=== PATIENT | male | born 1945 | race Caucasian/White ===

== ENCOUNTER → 2016-11-21 | Outpatient (REF) | payer MEDICARE, OTHER ==
[2016-11-21 19:13] LABS: CALCIUM LEVEL 10.2 MG/DL (8.8-10.2); CREATININE FOR GFR 1.42 MG/DL (0.70-1.30); GLOMERULAR FILTRATION RATE 52.6 (>49); POTASSIUM SERUM 4.6 MEQ/L (3.5-5.1)
== END ==
LOC: M LAB REF 16:34
PROVIDERS: ATTEND Physician Assistant Medical
DX: E11.22 Type 2 diabetes mellitus with diabetic chronic kidney disease (principal); E78.2 Mixed hyperlipidemia

== ENCOUNTER → 2016-12-22 | Outpatient (REF) | payer MEDICARE, OTHER ==
[2016-12-27 10:37] LABS: ALBUMIN 4.45 GM/DL (3.29-5.55); ALBUMIN % 63.6 % (55.8-66.1); GAMMA GLOBULIN % 12.1 % (11.1-18.8)
== END ==
LOC: M LAB REF 13:00
PROVIDERS: ATTEND Internal Medicine Nephrology
DX: E83.52 Hypercalcemia (principal)

== ENCOUNTER → 2016-12-28 | Outpatient (CLI) | payer MEDICARE, OTHER ==
--- NOTE | 2016-12-28 14:25 | REP ---
PARATHYROID NUCLEAR SCINTIGRAPHY WITH SPECT IMAGING: HISTORY: Hypercalcemia. Comparison parathyroid scintigraphy is from July 28, 2011. TECHNIQUE: 26.3 millicuries technetium 99m sestamibi is injected and 15-minute delay and 3- hour delayed head and neck imaging is acquired with planar technique. A SPECT imaging acquisition is also acquired. SCINTIGRAPHIC FINDINGS: Initial imaging shows normal thyroid and salivary uptake in the head and neck region. Delayed scan images demonstrate expected washout from the thyroid with no persistent neck uptake to suggest a parathyroid adenoma. No upper mediastinal focus is seen. The SPECT images show no additional abnormality. IMPRESSION: Negative parathyroid nuclear scintigraphy with planar and SPECT imaging. No scintigraphic evidence to suggest parathyroid adenoma. Signed by Curt Shah MD 12/28/2016 02:48 P
== END ==
LOC: M RAD 09:45
PROVIDERS: ATTEND Internal Medicine Nephrology
DX: E83.52 Hypercalcemia (principal); N20.0 Calculus of kidney
CPT/HCPCS: 78070; 78803; A9500

== ENCOUNTER → 2017-01-16 | Outpatient (CLI) | payer MEDICARE, OTHER ==
--- NOTE | 2017-01-16 08:21 | REP ---
Clinical: History of bilateral iliac artery stenting. Technique: Real time gutierrez scale and color Doppler evaluation using curved array transducer. Findings: The abdominal aorta demonstrates scattered atherosclerotic changes without aneurysm or periaortic inflammatory changes/fluid. Proximal aorta 2.0 x 2.5 cm. Mid aorta 2.4 x 2.6 cm. Distal aorta 2.2 x 2.8 cm. Right common iliac artery 1.4 x 1.1 cm. Left common iliac artery 1.0 x 0.8 cm. Doppler interrogation demonstrates normal arterial wave patterns through the abdominal aorta and common iliac arteries. Distal aorta velocity at 99.4 cm/sec. Right iliac artery velocity (within stent) at 227.2 cm/sec. Right iliac artery velocity (post stent) at 254.5 cm/sec. Left iliac artery velocity (within stent) at 246.4 cm/sec. Left iliac artery velocity (post stent) at 276.9 cm/sec. Impression: No evidence for abdominal aortic aneurysm. Patent bilateral iliac artery stents with increased velocities as noted above. Signed by Yordy Gutierrez MD 01/16/2017 08:13 A
== END ==
LOC: M RAD 07:11
PROVIDERS: ATTEND Surgery
DX: Z95.828 Presence of other vascular implants and grafts (principal)

== ENCOUNTER → 2017-03-23 | Outpatient (REF) | payer MEDICARE, OTHER | LOC: M LAB REF 17:15 | PROVIDERS: ATTEND Internal Medicine Nephrology | DX: E83.52 Hypercalcemia (principal) ==

== ENCOUNTER → 2017-07-06 | Outpatient (REF) | payer MEDICARE, OTHER | LOC: M LAB REF 07:57 | PROVIDERS: ATTEND Internal Medicine Nephrology | DX: E83.52 Hypercalcemia (principal) ==

== ENCOUNTER → 2017-08-03 | Outpatient (REF) | payer MEDICARE, OTHER ==
[2017-08-03 19:38] LABS: PERCENT SATURATION 25.3 % (19.7-50.0)
[2017-08-04 12:04] LABS: FOLATE 14.6 NG/ML
== END ==
LOC: M LAB REF 17:40
PROVIDERS: ATTEND Internal Medicine Nephrology
DX: E83.52 Hypercalcemia (principal); D64.9 Anemia, unspecified

== ENCOUNTER → 2018-01-11 | Outpatient (CLI) | payer MEDICARE, OTHER | LOC: M RAD 08:55 | DX: Z95.828 Presence of other vascular implants and grafts (principal) | CPT/HCPCS: 76775 ==

== ENCOUNTER 2018-12-26 08:10 | Day surgery (SDC) | payer MEDICARE, OTHER ==
[~2018-12-26] VITALS: Ht 170.2 cm; Wt 90.7 kg
[~2018-12-26 08:10] MED LIST: AMLO10TA5 PO; CARV6.25 PO; CINA30TA PO; FENO160T10 PO; INSUHUMDS SC; KPHOS50TA PO; LANTINJ4 SC; LOSA100T50 PO; METO1TAB32 PO; NS 1,000 ML IV ONE; PARO20TA3 PO; POTA4.25 PO; ROSU40TA3 PO
[2018-12-26] MEDS ORDERED: LIDOCAINE 2% INJ 100 MG/5 ML SDV (FOR ANES.) As Ordered ONE (10:52)
[2018-12-26] MEDS ORDERED: PROPOFOL 200 MG/20 ML VIAL As Ordered ONE (10:52)
--- NOTE | 2018-12-26 11:05 | ROOR ---
Patient Name: Ramiro Richter Procedure Date: 12/26/2018 10:36 AM Date of : 1945 Age: 73 Room: [facility] Gender: Male Note Status: Finalized Procedure: Total Colonoscopy to Cecum + Biopsy Polypectomy Indications: Screening for colorectal malignant neoplasm Providers: Jalen Varela MD Referring MD: RAMONA COWART Requesting Provider: Medicines: Monitored Anesthesia Care Complications: No immediate complications. Procedure: Pre-Anesthesia Assessment: - The heart rate, respiratory rate, oxygen saturations, blood pressure, adequacy of pulmonary ventilation, and response to care were monitored throughout the procedure. The Colonoscope was introduced through the anus and advanced to the cecum, identified by appendiceal orifice and ileocecal valve. The colonoscopy was performed without difficulty. The patient tolerated the procedure well. The quality of the bowel preparation was good. Findings: The perianal and digital rectal examinations were normal. Non-bleeding internal hemorrhoids were found during retroflexion. The hemorrhoids were small and Grade I (internal hemorrhoids that do not prolapse). Multiple small and large-mouthed diverticula were found in the recto-sigmoid colon, sigmoid colon and descending colon. A small polyp was found in the hepatic flexure. The polyp was sessile. The polyp was removed with a jumbo cold forceps. Resection and retrieval were complete. A small polyp was found at 50 cm proximal to the anus. The polyp was sessile. The polyp was removed with a jumbo cold forceps. Resection and retrieval were complete. The exam was otherwise without abnormality on direct and retroflexion views. Impression: - Non-bleeding internal hemorrhoids. - Diverticulosis in the recto-sigmoid colon, in the sigmoid colon and in the descending colon. - One small polyp at the hepatic flexure, removed with a jumbo cold forceps. Resected and retrieved. - One small polyp at 50 cm proximal to the anus, removed with a jumbo cold forceps. Resected and retrieved. - The examination was otherwise normal on direct and retroflexion views. - The exam was otherwise normal to the cecum. Recommendation: - Patient has a contact number available for emergencies. The signs and symptoms of potential delayed complications were discussed with the patient. Return to normal activities tomorrow. Written discharge instructions were provided to the patient. - High fiber diet. - Discharge patient to home. - Continue present medications. - Await pathology results. - Telephone GI clinic for pathology results in 1 week. - Repeat colonoscopy for surveillance based on pathology results. - Return to referring physician. - The findings and recommendations were discussed with the patient's family. Jalen Varela MD Jalen Varela MD 12/26/2018 11:05:17 AM This report has been signed electronically. Number of Addenda: 0 Note Initiated On: 12/26/2018 10:36 AM Estimated Blood Loss: Estimated blood loss: none.
[2018-12-26 11:30] VITALS: BP 176/94
== END 2018-12-26 11:48 | disposition home or self-care (01) ==
LOC: M OPP 08:10
PROVIDERS: ATTEND Internal Medicine Gastroenterology
DX: Z12.11 Encounter for screening for malignant neoplasm of colon (principal); K64.0 First degree hemorrhoids; D12.3 Benign neoplasm of transverse colon; K57.30 Diverticulosis of large intestine without perforation or abscess without bleeding; N18.3 Chronic kidney disease, stage 3 (moderate); Z79.4 Long term (current) use of insulin; Z79.899 Other long term (current) drug therapy; Z87.891 Personal history of nicotine dependence

== ENCOUNTER → 2019-01-01 | Outpatient (CLI) | payer MEDICARE, OTHER ==
[~2019-01-01] MED LIST changes: -NS 1,000 ML IV ONE
--- NOTE | 2019-01-01 10:45 | REP ---
Aortic sonography with an aortoiliofemoral Doppler ultrasound: History: Abdominal aortic aneurysm without rupture. Status post insertion of iliac artery stent. Comparison sonography January 11, 2018. Comparison CT study August 26, 2016. Sonographic findings: The abdominal aorta measures 2.4 x 3.3 cm in AP by transverse dimension proximally at the diaphragmatic hiatus. At the renal artery level these dimensions are 2.0 x 2.9 cm. At mid aorta, its dimensions are 2.2 x 2.6 cm. Distal aorta measures 2.5 x 2.5 cm. Right and left common iliac arteries measure 1.0 and 0.9 cm in greatest diameter. Bilateral iliac artery stents are patent. Distal aortic peak systolic flow velocity is recorded by Doppler at 81.1 cm/sec. The left common iliac artery stent velocity is 230 cm/sec today. Poststent velocity 360 cm/sec. The right common iliac artery stent velocity is 279 cm/sec. We were not able to assess the poststent segment of the left iliac artery due to bowel gas. Impression: Aortic ectasia. Patent common iliac stents bilaterally. Velocities as above. Electronically Signed by Curt Shah MD 01/01/2019 11:21 A
== END ==
LOC: M RAD 09:13
PROVIDERS: ATTEND Surgery
DX: Z95.828 Presence of other vascular implants and grafts (principal); I71.4 Abdominal aortic aneurysm, without rupture

== ENCOUNTER → 2019-01-09 | Outpatient (REF) | payer MEDICARE, OTHER ==
[2019-01-09 18:07] LABS: CHOLESTEROL RISK RATIO 4.794 (<5)
[2019-01-09 18:40] LABS: MAU/CREAT RATIO 52.4 MCG/MG (0.0-30.0)
== END ==
LOC: M LABDRWCV 16:57
PROVIDERS: ATTEND Physician Assistant Medical
DX: E78.2 Mixed hyperlipidemia (principal)

== ENCOUNTER → 2019-12-31 | Outpatient (CLI) | payer MEDICARE, OTHER ==
[~2019-12-31] MED LIST changes: -CINA30TA PO; +CINA30TA4 PO; -ROSU40TA3 PO; +ROSU40TA4 PO
--- NOTE | 2019-12-31 10:59 | REP ---
ULTRASOUND ABDOMINAL AORTA AND ILIAC ARTERIES: Comparison 01/01/2019. Real-time sonographic evaluation of abdominal aorta and iliac arteries performed. There is no abdominal aortic aneurysm. Maximum AP diameter of the proximal abdominal aorta is 2.9 cm, mid aspect 1.4 to 1.5 cm and distally 2.2 cm. Right common iliac artery measures 9 x 7 mm and left 6 x 8 mm. There are bilateral common iliac artery stents again noted which are patent. Peak systolic velocity of the distal abdominal aorta is 131 cm/s. Peak systolic velocity within the right common iliac stent is 182 cm/s and immediately distal to the stent 129 cm/s. Peak systolic velocity in the left common iliac stent is 217 cm/s, immediately distal to the stent 302 cm/s. Findings are similar to the prior study. IMPRESSION: Patent bilateral common iliac artery stents as discussed above with similar velocity measurements compared to the prior study of 01/01/2019. Electronically Signed by Lalo Park MD 12/31/2019 07:53 P
== END ==
LOC: M RAD 09:06
PROVIDERS: ATTEND Surgery
DX: Z95.828 Presence of other vascular implants and grafts (principal); I71.4 Abdominal aortic aneurysm, without rupture

== ENCOUNTER → 2020-05-15 | Outpatient (CLI) | payer MEDICARE, OTHER ==
[~2020-05-15] MED LIST changes: -AMLO10TA5 PO; +AMLO1TAB25 PO
[2020-05-15 16:34] LABS: BILIRUBIN,TOTAL 0.3 MG/DL (0.2-1.0); CALCIUM LEVEL 9.4 MG/DL (8.8-10.2); CHOLESTEROL RISK RATIO 4.307 (<5); CREATININE FOR GFR 1.39 MG/DL (0.70-1.30); GLOMERULAR FILTRATION RATE 53.3 (>42); POTASSIUM SERUM 4.4 MEQ/L (3.5-5.1); TOTAL PROTEIN 7.2 GM/DL (6.4-8.2)
[2020-05-15 17:09] LABS: CREATININE, URINE 89.2 MG/DL; MAU/CREAT RATIO 35.8 MCG/MG (0.0-30.0)
== END ==
LOC: M WUC 13:21
PROVIDERS: ATTEND Physician Assistant
DX: N18.3 Chronic kidney disease, stage 3 (moderate) (principal); E78.2 Mixed hyperlipidemia; E11.9 Type 2 diabetes mellitus without complications

== ENCOUNTER → 2021-03-18 | Outpatient (CLI) | payer MEDICARE, OTHER ==
--- NOTE | 2021-03-18 09:36 | REP ---
INDICATION: AAA WITHOUT RUPTURE. COMPARISON: 12/31/2019 the latest prior TECHNIQUE: Transabdominal scanning.Multiple ultrasonographic images of the abdominal aorta were obtained the same fashion as the prior exam. FINDINGS: The proximal aorta could not be imaged due to the patient's intestinal gas pattern. The maximal AP dimension of the abdominal aorta as measured in the longitudinal scan plane is 2.6 cm. This is the infrarenal aorta and has a peak systolic velocity of 117.7 centimeters/second. Bilateral common iliac arterial stents were again identified to be patent. The technologist performing the examination did not obtained peak systolic velocities in those vessels. There is no evidence of common iliac arterial ectasia. IMPRESSION: Exam findings and limitations as described above. There is no evidence of aneurysmal dilatation. <Electronically signed by Tr Oropeza > 03/18/21 [id number]
== END ==
LOC: M RAD 08:47
PROVIDERS: ATTEND Surgery
DX: I71.4 Abdominal aortic aneurysm, without rupture (principal)

== ENCOUNTER → 2021-06-16 | Outpatient (REF) | payer MEDICARE, OTHER ==
[2021-06-16 16:48] LABS: ALBUMIN 4.1 GM/DL (3.2-5.2); BILIRUBIN,TOTAL 0.5 MG/DL (0.2-1.0); CALCIUM LEVEL 10.3 MG/DL (8.8-10.2); CHOLESTEROL RISK RATIO 4.157 (<5); CREATININE FOR GFR 1.31 MG/DL (0.70-1.30); GLOMERULAR FILTRATION RATE 56.9 (>42); POTASSIUM SERUM 4.2 MEQ/L (3.5-5.1)
[2021-06-16 16:50] LABS: HEMOGLOBIN A1c 6.8 %
[2021-06-16 17:02] LABS: MAU/CREAT RATIO 138.3 MCG/MG (0.0-30.0)
== END ==
LOC: M LABDRWCV 16:00
PROVIDERS: ATTEND Nurse Practitioner Family
DX: E11.69 Type 2 diabetes mellitus with other specified complication (principal); E78.2 Mixed hyperlipidemia

== ENCOUNTER → 2021-11-09 | Outpatient (REF) | payer MEDICARE, OTHER ==
[~2021-11-09] MED LIST changes: +LOSA100T45 PO; -LOSA100T50 PO
== END ==
LOC: M LABDRWCV 15:37
PROVIDERS: ATTEND Nurse Practitioner Family
DX: E78.2 Mixed hyperlipidemia (principal); E11.22 Type 2 diabetes mellitus with diabetic chronic kidney disease

== ENCOUNTER → 2022-05-27 | Outpatient (CLI) | payer MEDICARE, OTHER | LOC: M WUC 15:03 | PROVIDERS: ATTEND Nurse Practitioner Family | DX: M16.0 Bilateral primary osteoarthritis of hip (principal); M51.36 Other intervertebral disc degeneration, lumbar region; Z95.818 Presence of other cardiac implants and grafts; M41.86 Other forms of scoliosis, lumbar region ==

== ENCOUNTER → 2022-07-06 | Outpatient (CLI) | payer MEDICARE, OTHER ==
[~2022-07-06] MED LIST changes: +NAPR-832 PO; +TELM1TAB37 PO
== END ==
LOC: M LABSMTC 11:43
PROVIDERS: ATTEND Anesthesiology
DX: Z01.812 Encounter for preprocedural laboratory examination (principal); Z11.52 Encounter for screening for COVID-19

== ENCOUNTER 2022-07-11 12:04 | Day surgery (SDC) | payer MEDICARE, OTHER ==
[~2022-07-11] VITALS: Ht 170.2 cm; Wt 86.6 kg
[~2022-07-11 12:04] MED LIST changes: +ceFAZolin SOD 2 GM in IV 1 EA IV ONE
[2022-07-11] MEDS ORDERED: LR 1,000 ML IV SCH (12:35)
[2022-07-11 12:38] LABS: HEMATOCRIT 39.1 % (42.0-52.0); HEMOGLOBIN 13.4 g/dl (13.5-17.5); MEAN CORPUSCULAR HEMOGLOBIN 28.4 pg (27.0-33.0); MEAN CORPUSCULAR HGB CONC 34.3 g/dl (32.0-36.5); MEAN CORPUSCULAR VOLUME 82.8 fl (80.0-96.0); PLATELET COUNT, AUTOMATED 399 10^3/uL (150-450); RED BLOOD COUNT 4.72 10^6/uL (4.30-6.10); WHITE BLOOD COUNT 9.1 10^3/uL (4.0-10.0)
[2022-07-11] MEDS ORDERED: ASPI-1 PO (12:48)
[2022-07-11] MEDS ORDERED: propofoL 200 MG/20 ML VIAL As Ordered ONE (13:02)
[2022-07-11] MEDS ORDERED: LIDOCAINE 2% 100MG/5ML SDV (FOR ANES.) As Ordered ONE (13:02)
[2022-07-11] MEDS ORDERED: fentaNYL 100 MCG/2 ML INJECTION As Ordered ONE (13:03)
[2022-07-11] MEDS ORDERED: LIDOCAINE 1% SDV 30ML VIAL As Ordered ONE (13:30)
[2022-07-11] MEDS ORDERED: BACITRACIN OINTMENT 30GM TUBE As Ordered ONE (14:06)
[2022-07-11 14:50] VITALS: BP 134/60
== END 2022-07-11 15:01 | disposition home or self-care (01) ==
LOC: M SDC 12:04
PROVIDERS: ATTEND Internal Medicine Cardiovascular Disease
DX: R55 Syncope and collapse (principal); I10 Essential (primary) hypertension; E11.9 Type 2 diabetes mellitus without complications; Z79.4 Long term (current) use of insulin; K21.9 Gastro-esophageal reflux disease without esophagitis; N18.30 Chronic kidney disease, stage 3 unspecified; Z79.82 Long term (current) use of aspirin; Z79.899 Other long term (current) drug therapy; Z87.891 Personal history of nicotine dependence
CPT/HCPCS: 33285; 36415; 85027; 93005; C1764; J0690; J3010

== ENCOUNTER → 2022-10-27 | Outpatient (REF) | payer MEDICARE, OTHER ==
[~2022-10-27] MED LIST changes: +ASPI-1 PO; +GABA-282 PO; +ONDA-83 PO; -ceFAZolin SOD 2 GM in IV 1 EA IV ONE
[2022-10-27 18:10] LABS: ALBUMIN 3.5 G/DL (3.2-5.2); BILIRUBIN,TOTAL 0.5 MG/DL (0.3-1.2); CALCIUM LEVEL 10.7 MG/DL (8.3-10.6); CREATININE FOR GFR 2.11 MG/DL (0.70-1.30); GLOMERULAR FILTRATION RATE 32.8 (>42); POTASSIUM SERUM 4.5 MMOL/L (3.5-5.1); TOTAL PROTEIN 6.7 G/DL (5.7-8.2)
[2022-10-27 18:25] LABS: BASO % 0.2 % (0.0-1.0); EOS # 0.1 10^3/uL (0.0-0.5); EOS % 1.4 % (0.0-3.0); HEMATOCRIT 37.8 % (42.0-52.0); HEMOGLOBIN 12.5 g/dl (13.5-17.5); LYMPH # 1.4 10^3/uL (1.5-5.0); LYMPH % 31.7 % (24.0-44.0); MEAN CORPUSCULAR HGB CONC 33.1 g/dl (32.0-36.5); MEAN CORPUSCULAR VOLUME 84.8 fl (80.0-96.0); MONO # 0.6 10^3/uL (0.0-0.8); MONO % 13.4 % (2.0-8.0); NEUTROPHILS # 2.3 10^3/uL (1.5-8.5); NEUTROPHILS % 52.6 % (36.0-66.0); PLATELET COUNT, AUTOMATED 294 10^3/uL (150-450); RED BLOOD COUNT 4.46 10^6/uL (4.30-6.10); WHITE BLOOD COUNT 4.4 10^3/uL (4.0-10.0)
== END ==
LOC: M LABDRWCV 17:04
PROVIDERS: ATTEND Nurse Practitioner Family
DX: R19.7 Diarrhea, unspecified (principal)

== ENCOUNTER 2022-10-28 13:45 | Inpatient (IN) | payer MEDICARE, OTHER ==
[~2022-10-28] VITALS: Ht 167.6 cm; Wt 80.2 kg
[~2022-10-28 13:45] MED LIST changes: -GABA-282 PO; -ONDA-83 PO
[2022-10-28] MEDS ORDERED: NS 1,000 ML IV ONE ×2 (17:05→19:00)
[2022-10-28] MEDS ORDERED: LIDOCAINE 2% 5ML JELLY UROJET TOP ONE (17:05)
[2022-10-28] MEDS: ONDANSETRON 4MG 2ML VIAL IV ONE ×2 (17:49→22:42)
[2022-10-28 17:58] LABS: BASO % 0.1 % (0.0-1.0); EOS # 0.1 10^3/uL (0.0-0.5); HEMATOCRIT 35.5 % (42.0-52.0); HEMOGLOBIN 12.1 g/dl (13.5-17.5); LYMPH % 14.7 % (24.0-44.0); MEAN CORPUSCULAR HEMOGLOBIN 28.1 pg (27.0-33.0); MEAN CORPUSCULAR HGB CONC 34.1 g/dl (32.0-36.5); MEAN CORPUSCULAR VOLUME 82.4 fl (80.0-96.0); MONO # 0.6 10^3/uL (0.0-0.8); MONO % 8.8 % (2.0-8.0); NEUTROPHILS # 5.3 10^3/uL (1.5-8.5); PLATELET COUNT, AUTOMATED 317 10^3/uL (150-450); RED BLOOD COUNT 4.31 10^6/uL (4.30-6.10)
[2022-10-28 18:10] LABS: INR 1.03; PROTHROMBIN TIME 13.7 SECONDS (12.5-14.5)
[2022-10-28 18:12] LABS: LIPASE 63 U/L (12-53)
[2022-10-28 18:14] LABS: ALBUMIN 3.5 G/DL (3.2-5.2); ALKALINE PHOSPHATASE 56 U/L (46-116); ALT/SGPT 42 U/L (7.0-40); AST/SGOT 35 U/L (<34); BILIRUBIN,DIRECT 0.2 MG/DL (<0.4); BILIRUBIN,TOTAL 0.5 MG/DL (0.3-1.2); BLOOD UREA NITROGEN 48 MG/DL (9-23); CARBON DIOXIDE LEVEL 20 MMOL/L (20-31); CHLORIDE LEVEL 106 MMOL/L (98-107); CK-MB VALUE MASS < 1.0 NG/ML (<3.6); CPK CREATINE PHOSPHOKINASE 39 U/L (46-171); CREATININE FOR GFR 1.83 MG/DL (0.70-1.30); GLOMERULAR FILTRATION RATE 38.6 (>42); GLUCOSE, FASTING 101 MG/DL (74-106); MB/CK RELATIVE INDEX 2.56 (< OR =4); POTASSIUM SERUM 5.1 MMOL/L (3.5-5.1); SODIUM LEVEL 138 MMOL/L (136-145); TOTAL PROTEIN 6.6 G/DL (5.7-8.2)
[2022-10-28 18:39] LABS: RSV AMPLIFICATION NEGATIVE (NEGATIVE)
[2022-10-28] MEDS ORDERED: LOSA100T45 PO (19:55)
[2022-10-28] MEDS ORDERED: GABA-282 PO (19:55)
[2022-10-28] MEDS ORDERED: ONDA-83 PO (19:56)
[2022-10-28] MEDS ORDERED: POTA4.25 PO (19:56)
[2022-10-28] MEDS ORDERED: HOME MED LIST COMPLETE! XX SCH (20:00)
[2022-10-28] MEDS ORDERED: guaiFENesin SYRUP 200MG 10ML UDC PO PRN (20:50)
[2022-10-28] MEDS ORDERED: DEXTROSE 50% 50ML SYRINGE IV PRN (20:50)
[2022-10-28] MEDS ORDERED: GLUCAGON INJ 1MG VIAL SC PRN (20:50)
[2022-10-28] MEDS ORDERED: GLUCOSE 4GM CHEW TABLET PO PRN (20:50)
[2022-10-28] MEDS ORDERED: IPRATROPIUM 0.5MG/ALBUTEROL 2.5MG INH SOL UD 3ML (DUONEB) NEB PRN (20:50)
[2022-10-28] MEDS ORDERED: INSULIN LISPRO (NovoLOG) PER UNIT SC SCH (21:00)
[2022-10-28 21:34] LABS: FIBRINOGEN 660 MG/DL (268-480)
[2022-10-28 21:37] LABS: D-DIMER QUANT < 270 ng/ml (<500); MAGNESIUM LEVEL 1.8 MG/DL (1.8-2.4)
[2022-10-28 21:38] LABS: LDH LACTATE DEHYDROGENASE 166 U/L (120-246)
[2022-10-28 21:42] LABS: FERRITIN 335.6 NG/ML (10.5-307.3)
[2022-10-28] MEDS ORDERED: DOXYCYCLINE HYCLATE 100 MG in D5W MINI-BAG PLUS 100 ML IV SCH (22:00)
[2022-10-28 22:42] VITALS: BP 131/64
[2022-10-28] MEDS: CARVedilol 6.25 MG TAB PO SCH (23:18)
[2022-10-28] MEDS: NS 1,000 ML IV SCH (23:20)
[2022-10-28] MEDS: cefTRIAXone SOD 1 GM in D5W MINI-BAG PLUS 50 ML IV SCH (23:20)
[2022-10-29 01:09] VITALS: O2SAT 94
[2022-10-29 05:20] VITALS: BP 123/61
[2022-10-29 06:32] LABS: BASO % 0.2 % (0.0-1.0); EOS # 0.1 10^3/uL (0.0-0.5); EOS % 1.6 % (0.0-3.0); HEMATOCRIT 31.1 % (42.0-52.0); HEMOGLOBIN 10.4 g/dl (13.5-17.5); LYMPH # 1.1 10^3/uL (1.5-5.0); LYMPH % 24.8 % (24.0-44.0); MEAN CORPUSCULAR HEMOGLOBIN 28.3 pg (27.0-33.0); MEAN CORPUSCULAR HGB CONC 33.4 g/dl (32.0-36.5); MEAN CORPUSCULAR VOLUME 84.5 fl (80.0-96.0); MONO # 0.5 10^3/uL (0.0-0.8); MONO % 11.9 % (2.0-8.0); NEUTROPHILS # 2.7 10^3/uL (1.5-8.5); PLATELET COUNT, AUTOMATED 289 10^3/uL (150-450); RED BLOOD COUNT 3.68 10^6/uL (4.30-6.10); WHITE BLOOD COUNT 4.4 10^3/uL (4.0-10.0)
[2022-10-29 06:38] LABS: PARTIAL THROMBOPLASTIN TIME 33.3 SECONDS (24.8-34.2)
[2022-10-29 06:39] LABS: BLOOD UREA NITROGEN 42 MG/DL (9-23); CALCIUM LEVEL 10.4 MG/DL (8.3-10.6); CARBON DIOXIDE LEVEL 24 MMOL/L (20-31); CHLORIDE LEVEL 108 MMOL/L (98-107); CREATININE FOR GFR 1.57 MG/DL (0.70-1.30); GLOMERULAR FILTRATION RATE 46.1 (>42); GLUCOSE, FASTING 86 MG/DL (74-106); POTASSIUM SERUM 4.9 MMOL/L (3.5-5.1); SODIUM LEVEL 139 MMOL/L (136-145)
[2022-10-29 06:40] LABS: MAGNESIUM LEVEL 1.7 MG/DL (1.8-2.4)
[2022-10-29 06:41] LABS: CALCIUM LEVEL 10.4 MG/DL (8.3-10.6); CREATININE FOR GFR 1.55 MG/DL (0.70-1.30); GLOMERULAR FILTRATION RATE 46.8 (>42); POTASSIUM SERUM 4.9 MMOL/L (3.5-5.1)
[2022-10-29 06:42] LABS: INR 1.11; PROTHROMBIN TIME 14.5 SECONDS (12.5-14.5)
[2022-10-29] MEDS: INSULIN LISPRO (NovoLOG) PER UNIT SC SCH ×2 (07:30→12:00)
[2022-10-29] MEDS: ASPIRIN 325 MG TAB PO SCH (07:56)
[2022-10-29] MEDS: guaiFENesin ER 600 MG TAB PO SCH ×2 (07:56→20:55)
[2022-10-29] MEDS: FENOFIBRATE 145MG TABLET (TRICOR) PO SCH (07:56)
[2022-10-29] MEDS: CINACALCET 30 MG TAB (SENSIPAR) PO SCH (07:56)
[2022-10-29] MEDS: PARoxetine 20MG TABLET PO SCH (07:56)
[2022-10-29] MEDS: ENOXAPARIN 40MG/0.4ML SYRINGE (J1650 PER 10MG) SC SCH (07:57)
[2022-10-29] MEDS: CARVedilol 6.25 MG TAB PO SCH ×2 (07:59→20:54)
[2022-10-29 08:00] LABS: MAGNESIUM LEVEL 1.7 MG/DL (1.8-2.4)
[2022-10-29 08:02] LABS: BILIRUBIN,DIRECT 0.2 MG/DL (<0.4)
[2022-10-29 08:06] LABS: ALBUMIN 3.1 G/DL (3.2-5.2); ALKALINE PHOSPHATASE 49 U/L (46-116); ALT/SGPT 30 U/L (7.0-40); AST/SGOT 24 U/L (<34); BILIRUBIN,TOTAL 0.4 MG/DL (0.3-1.2)
[2022-10-29 09:57] LABS: FOLATE 13.79 NG/ML (>5.4); THYROID STIMULATING HORMONE 0.855 uIU/ML (0.55-4.78); THYROXINE (T4) 11.2 UG/DL (4.5-10.9)
[2022-10-29 09:58] LABS: VITAMIN B12 LEVEL 524 PG/ML (211-911)
[2022-10-29] MEDS: NS 1,000 ML IV SCH ×2 (11:15→23:36)
[2022-10-29] MEDS: DOXYCYCLINE HYCLATE 100MG TABLET PO SCH ×2 (11:15→20:55)
[2022-10-29 13:34] VITALS: O2SAT 94
[2022-10-29 14:00] VITALS: BP 127/58
[2022-10-29] MEDS: OMEPRAZOLE 20MG CAP PO SCH (16:09)
[2022-10-29 20:45] VITALS: O2SAT 94
[2022-10-29 20:50] VITALS: BP 127/57
[2022-10-29] MEDS: cefTRIAXone SOD 1 GM in D5W MINI-BAG PLUS 50 ML IV SCH (20:55)
[2022-10-30 05:10] VITALS: BP 127/57
[2022-10-30 06:43] LABS: EOS # 0.1 10^3/uL (0.0-0.5); EOS % 1.5 % (0.0-3.0); HEMATOCRIT 31.2 % (42.0-52.0); HEMOGLOBIN 10.7 g/dl (13.5-17.5); LYMPH # 0.8 10^3/uL (1.5-5.0); MEAN CORPUSCULAR HEMOGLOBIN 28.7 pg (27.0-33.0); MEAN CORPUSCULAR HGB CONC 34.3 g/dl (32.0-36.5); MEAN CORPUSCULAR VOLUME 83.6 fl (80.0-96.0); MONO # 0.5 10^3/uL (0.0-0.8); MONO % 9.6 % (2.0-8.0); NEUTROPHILS # 3.4 10^3/uL (1.5-8.5); NEUTROPHILS % 71.3 % (36.0-66.0); PLATELET COUNT, AUTOMATED 295 10^3/uL (150-450); RED BLOOD COUNT 3.73 10^6/uL (4.30-6.10); WHITE BLOOD COUNT 4.8 10^3/uL (4.0-10.0)
[2022-10-30 07:11] LABS: MAGNESIUM LEVEL 1.4 MG/DL (1.8-2.4)
[2022-10-30 07:13] LABS: CALCIUM LEVEL 9.9 MG/DL (8.3-10.6); CREATININE FOR GFR 1.25 MG/DL (0.70-1.30); GLOMERULAR FILTRATION RATE 59.9 (>42); POTASSIUM SERUM 4.6 MMOL/L (3.5-5.1)
[2022-10-30] MEDS: OMEPRAZOLE 20MG CAP PO SCH (08:20)
[2022-10-30] MEDS: FENOFIBRATE 145MG TABLET (TRICOR) PO SCH (08:20)
[2022-10-30] MEDS: DOXYCYCLINE HYCLATE 100MG TABLET PO SCH (08:20)
[2022-10-30] MEDS: ASPIRIN 325 MG TAB PO SCH (08:20)
[2022-10-30] MEDS: guaiFENesin ER 600 MG TAB PO SCH (08:20)
[2022-10-30] MEDS: CINACALCET 30 MG TAB (SENSIPAR) PO SCH (08:20)
[2022-10-30] MEDS: PARoxetine 20MG TABLET PO SCH (08:20)
[2022-10-30 08:21] VITALS: BP 139/61
[2022-10-30] MEDS: NS 1,000 ML IV SCH (08:21)
[2022-10-30] MEDS: CARVedilol 6.25 MG TAB PO SCH (08:21)
[2022-10-30] MEDS: ENOXAPARIN 40MG/0.4ML SYRINGE (J1650 PER 10MG) SC SCH (08:23)
[2022-10-30] MEDS ORDERED: CEFD300C41 PO (09:47)
[2022-10-30] MEDS ORDERED: DOXY100T PO (09:47)
[2022-10-30] MEDS ORDERED: MAGN400T2 PO (09:50)
[2022-10-30] MEDS: MAG SULF 1GM/100ML (MAG RUN) 1 GM in IV 1 EA IV SCH ×3 (10:01→12:25)
[2022-10-30 10:19] VITALS: O2SAT 94
[2022-10-30] MEDS ORDERED: BEBTELOVIMAB 175MG 2ML VIAL (EUA) IV ONE (13:15)
[2022-10-30] MEDS ORDERED: methylPREDNISolone 125MG 2ML VIAL IV PRN (13:15)
[2022-10-30] MEDS ORDERED: ALBUTEROL SULFATE 2.5MG/0.5ML INH NEB SOLN INH PRN (13:15)
[2022-10-30] MEDS ORDERED: NS 1,000 ML IV SCH (13:15)
[2022-10-30] MEDS ORDERED: diphenhydrAMINE 50MG/ML VIAL IV PRN (13:15)
[2022-10-30] MEDS ORDERED: EPINEPHrine INJ 1 MG/ML 1ML AMP IM PRN (13:15)
[2022-10-30] MEDS ORDERED: ALBUTEROL 90 MCG/ACT 8GM HFA INHALER INH PRN (13:15)
== END 2022-10-30 15:21 | disposition home or self-care (01) | DRG 177 ==
LOC: M ED 13:45 → M ED INP 20:47 → ENRESERV 21:43 → M MSPAV 22:36
PROVIDERS: ADMIT Internal Medicine; ATTEND Internal Medicine
PROC: B246ZZZ Ultrasonography of Right and Left Heart (ICD-10-PCS; principal; 2022-10-29)
DX: U07.1 COVID-19 (principal); J12.82 Pneumonia due to coronavirus disease 2019; N17.9 Acute kidney failure, unspecified; I50.30 Unspecified diastolic (congestive) heart failure; I13.0 Hypertensive heart and chronic kidney disease with heart failure and stage 1 through stage 4 chronic kidney disease, or unspecified chronic kidney disease; K21.9 Gastro-esophageal reflux disease without esophagitis; E11.22 Type 2 diabetes mellitus with diabetic chronic kidney disease; E21.3 Hyperparathyroidism, unspecified; E11.51 Type 2 diabetes mellitus with diabetic peripheral angiopathy without gangrene; E86.0 Dehydration; F39 Unspecified mood [affective] disorder; E78.5 Hyperlipidemia, unspecified; I73.9 Peripheral vascular disease, unspecified; N18.30 Chronic kidney disease, stage 3 unspecified; M19.90 Unspecified osteoarthritis, unspecified site; I71.43 Infrarenal abdominal aortic aneurysm, without rupture; R91.1 Solitary pulmonary nodule; R05.3 Chronic cough; Z79.4 Long term (current) use of insulin; Z79.899 Other long term (current) drug therapy; Z90.49 Acquired absence of other specified parts of digestive tract; Z79.82 Long term (current) use of aspirin; Z95.828 Presence of other vascular implants and grafts; Z87.891 Personal history of nicotine dependence

== ENCOUNTER → 2022-11-04 | Outpatient (REF) | payer MEDICARE, OTHER ==
[~2022-11-04] MED LIST changes: +CEFD300C41 PO; +DOXY100T PO; +GABA-282 PO; +MAGN400T2 PO; +ONDA-83 PO
[2022-11-04 18:03] LABS: BASO % 0.1 % (0.0-1.0); EOS # 0.1 10^3/uL (0.0-0.5); EOS % 1.5 % (0.0-3.0); HEMATOCRIT 33.4 % (42.0-52.0); HEMOGLOBIN 11.1 g/dl (13.5-17.5); LYMPH # 1.2 10^3/uL (1.5-5.0); LYMPH % 18.2 % (24.0-44.0); MEAN CORPUSCULAR HEMOGLOBIN 27.6 pg (27.0-33.0); MEAN CORPUSCULAR HGB CONC 33.2 g/dl (32.0-36.5); MEAN CORPUSCULAR VOLUME 83.1 fl (80.0-96.0); MONO # 1.2 10^3/uL (0.0-0.8); MONO % 17.2 % (2.0-8.0); NEUTROPHILS # 4.2 10^3/uL (1.5-8.5); NEUTROPHILS % 62.3 % (36.0-66.0); PLATELET COUNT, AUTOMATED 386 10^3/uL (150-450); RED BLOOD COUNT 4.02 10^6/uL (4.30-6.10); WHITE BLOOD COUNT 6.8 10^3/uL (4.0-10.0)
[2022-11-04 18:20] LABS: ALBUMIN 3.1 G/DL (3.2-5.2); BILIRUBIN,TOTAL 0.4 MG/DL (0.3-1.2); CALCIUM LEVEL 11.5 MG/DL (8.3-10.6); CREATININE FOR GFR 1.37 MG/DL (0.70-1.30); GLOMERULAR FILTRATION RATE 53.9 (>42); POTASSIUM SERUM 4.6 MMOL/L (3.5-5.1); TOTAL PROTEIN 6.2 G/DL (5.7-8.2)
== END ==
LOC: M LABDRAWC 17:02
PROVIDERS: ATTEND Nurse Practitioner Family
DX: J12.82 Pneumonia due to coronavirus disease 2019 (principal); R19.7 Diarrhea, unspecified

== ENCOUNTER → 2022-12-08 | Outpatient (REF) | payer MEDICARE, OTHER ==
[2022-12-08 17:42] LABS: BASO % 0.6 % (0.0-1.0); EOS # 0.7 10^3/uL (0.0-0.5); EOS % 11.2 % (0.0-3.0); HEMATOCRIT 36.5 % (42.0-52.0); HEMOGLOBIN 11.6 g/dl (13.5-17.5); LYMPH # 1.8 10^3/uL (1.5-5.0); LYMPH % 27.8 % (24.0-44.0); MEAN CORPUSCULAR HEMOGLOBIN 27.3 pg (27.0-33.0); MEAN CORPUSCULAR HGB CONC 31.8 g/dl (32.0-36.5); MEAN CORPUSCULAR VOLUME 85.9 fl (80.0-96.0); MONO # 0.5 10^3/uL (0.0-0.8); NEUTROPHILS # 3.3 10^3/uL (1.5-8.5); NEUTROPHILS % 51.9 % (36.0-66.0); PLATELET COUNT, AUTOMATED 397 10^3/uL (150-450); RED BLOOD COUNT 4.25 10^6/uL (4.30-6.10); WHITE BLOOD COUNT 6.3 10^3/uL (4.0-10.0)
[2022-12-08 18:04] LABS: BILIRUBIN,TOTAL 0.4 MG/DL (0.3-1.2); CALCIUM LEVEL 10.1 MG/DL (8.3-10.6); CHOLESTEROL RISK RATIO 4.17 (<5); CREATININE FOR GFR 1.3 MG/DL (0.70-1.30); GLOMERULAR FILTRATION RATE 57.3 (>42); HDL CHOLESTEROL 37.8 MG/DL (>40); LDL CHOLESTEROL 99.4 MG/DL (<100); POTASSIUM SERUM 4.3 MMOL/L (3.5-5.1); TOTAL PROTEIN 6.8 G/DL (5.7-8.2)
[2022-12-08 18:10] LABS: HEMOGLOBIN A1c 5.3 % (4.0-6.0)
[2022-12-08 18:12] LABS: CREATININE, URINE 195.9 MG/DL
[2022-12-08 18:13] LABS: MAU/CREAT RATIO 32.6 MCG/MG (0.0-30.0)
== END ==
LOC: M LABDRWCV 16:55
PROVIDERS: ATTEND Nurse Practitioner Family
DX: I10 Essential (primary) hypertension (principal); E11.69 Type 2 diabetes mellitus with other specified complication; E78.2 Mixed hyperlipidemia; N18.30 Chronic kidney disease, stage 3 unspecified

== ENCOUNTER → 2023-03-28 | Outpatient (CLI) | payer MEDICARE, OTHER ==
[~2023-03-28] MED LIST changes: -LOSA100T45 PO; +LOSA100T46 PO
== END ==
LOC: M RAD 08:33
PROVIDERS: ATTEND Surgery
DX: I73.9 Peripheral vascular disease, unspecified (principal); I71.40 Abdominal aortic aneurysm, without rupture, unspecified

== ENCOUNTER → 2023-05-12 | Outpatient (CLI) | payer MEDICARE, OTHER ==
[~2023-05-12] MED LIST changes: +CARA1TAB6 PO; +CINA30TA5; +HYDR10TAB PO; +ISOS10TA3 PO; +ISOVUE-370 76% 100ML VIAL As Ordered ONE; +PROT1TAB2 PO; +SELF1KIT MC
== END ==
LOC: M RAD 13:50
PROVIDERS: ATTEND Nurse Practitioner Family
DX: R91.1 Solitary pulmonary nodule (principal)
CPT/HCPCS: 71260; Q9967

== ENCOUNTER → 2024-06-06 | Outpatient (REF) | payer MEDICARE, OTHER ==
[~2024-06-06] MED LIST changes: +CEFD1CAP9 PO; -CEFD300C41 PO; +HYDR-161 PO; -HYDR10TAB PO; -ISOVUE-370 76% 100ML VIAL As Ordered ONE; +LOSA50TA28 PO; -ROSU40TA4 PO; +ROSU40TA63 PO
[2024-06-06 18:43] LABS: BASO % 0.5 % (0.0-1.0); EOS # 0.5 10^3/uL (0.0-0.5); HEMATOCRIT 33.5 % (42.0-52.0); HEMOGLOBIN 11.4 g/dl (13.5-17.5); LYMPH # 1.5 10^3/uL (1.5-5.0); LYMPH % 27.1 % (24.0-44.0); MEAN CORPUSCULAR HEMOGLOBIN 28.9 pg (27.0-33.0); MONO # 0.5 10^3/uL (0.0-0.8); MONO % 8.8 % (2.0-8.0); NEUTROPHILS % 53.2 % (36.0-66.0); PLATELET COUNT, AUTOMATED 327 10^3/uL (150-450); RED BLOOD COUNT 3.94 10^6/uL (4.30-6.10); WHITE BLOOD COUNT 5.6 10^3/uL (4.0-10.0)
[2024-06-06 19:10] LABS: BILIRUBIN,TOTAL 0.4 MG/DL (0.3-1.2); CREATININE FOR GFR 1.43 MG/DL (0.70-1.30); POTASSIUM SERUM 4.6 MMOL/L (3.5-5.1); TOTAL PROTEIN 6.7 G/DL (5.7-8.2)
== END ==
LOC: M LABDRWCV 17:42
PROVIDERS: ATTEND Nurse Practitioner Family
DX: I10 Essential (primary) hypertension (principal); E11.69 Type 2 diabetes mellitus with other specified complication

== ENCOUNTER → 2025-02-12 | Day surgery (SDC) | payer MEDICARE, OTHER ==
[~2025-02-12] VITALS: Ht 170.2 cm; Wt 86.8 kg
[~2025-02-12] MED LIST changes: +DEXTROSE 50% 50ML SYRINGE IV PRN; +GABA-1172 PO; -GABA-282 PO; +GLUCAGON INJ 1MG VIAL SC PRN; +GLUCOSE 4 GM CHEW PO PRN; -ROSU40TA63 PO; +ROSU40TA81 PO
[2025-02-12] MEDS: INSULIN LISPRO (NovoLOG) PER UNIT SC PRN (10:41)
[2025-02-12 11:33] VITALS: TEMP 97.9
[2025-02-12 11:56] VITALS: BP 125/58; O2SAT 95
== END | disposition home or self-care (01) ==
LOC: M OPP 09:46
PROVIDERS: ATTEND Internal Medicine Gastroenterology
DX: Z12.11 Encounter for screening for malignant neoplasm of colon (principal); D12.3 Benign neoplasm of transverse colon; K57.30 Diverticulosis of large intestine without perforation or abscess without bleeding; K64.0 First degree hemorrhoids; Z86.0100 Personal history of colon polyps, unspecified; Z79.82 Long term (current) use of aspirin; Z79.4 Long term (current) use of insulin; Z79.899 Other long term (current) drug therapy
CPT/HCPCS: 45380; 88305; J1815

== ENCOUNTER 2025-08-10 10:47 | Emergency (ER) | payer MEDICARE, OTHER ==
[~2025-08-10] VITALS: Ht 170.2 cm; Wt 86.1 kg
[~2025-08-10 10:47] MED LIST changes: -DEXTROSE 50% 50ML SYRINGE IV PRN; -GLUCAGON INJ 1MG VIAL SC PRN; -GLUCOSE 4 GM CHEW PO PRN
[2025-08-10 13:03] LABS: BASO # 0.0 10^3/uL (0.0-0.2); BASO % 0.3 % (0.0-1.0); EOS # 0.4 10^3/uL (0.0-0.5); EOS % 3.0 % (0.0-3.0); LYMPH # 1.8 10^3/uL (1.5-5.0); LYMPH % 15.2 % (24.0-44.0); MONO # 0.7 10^3/uL (0.0-0.8); MONO % 6.3 % (2.0-8.0); NEUTROPHILS # 8.8 10^3/uL (1.5-8.5); NEUTROPHILS % 74.7 % (36.0-66.0); PLATELET COUNT, AUTOMATED 429 10^3/uL (150-450)
[2025-08-10] MEDS: MORPHINE 4 MG/ML 1 ML VIAL IV ONE (13:03)
[2025-08-10] MEDS: ONDANSETRON 4MG 2ML VIAL IV ONE (13:03)
[2025-08-10] MEDS: NS 500 ML IV ONE (13:03)
[2025-08-10] MEDS ORDERED: ISOVUE-370 76% 100 ML VIAL As Ordered ONE (13:22)
[2025-08-10 13:25] LABS: ALT/SGPT 34.0 U/L (7.0-40); AST/SGOT 27.0 U/L (<34)
[2025-08-10] MEDS ORDERED: HYDR-3713 PO (15:08)
[2025-08-10 15:31] VITALS: BP 156/79; TEMP 98.2; O2SAT 97
== END 2025-08-10 15:33 | disposition home or self-care (01) ==
LOC: M ED 10:47
DX: S30.13XA Contusion of flank (latus) region, initial encounter (principal); Y92.9 Unspecified place or not applicable; Y93.9 Activity, unspecified; Y99.9 Unspecified external cause status; W10.8XXA Fall (on) (from) other stairs and steps, initial encounter; N40.0 Benign prostatic hyperplasia without lower urinary tract symptoms; I71.9 Aortic aneurysm of unspecified site, without rupture; M51.360 Other intervertebral disc degeneration, lumbar region with discogenic back pain only; M51.34 Other intervertebral disc degeneration, thoracic region; Z79.1 Long term (current) use of non-steroidal anti-inflammatories (NSAID); Z79.4 Long term (current) use of insulin; Z79.899 Other long term (current) drug therapy
CPT/HCPCS: 72110; 74177; 80047; 80076; 85025; 86850; 86900; 86901; 96374; 99284; J2405; Q9967

== ENCOUNTER → 2025-08-14 | Outpatient (REF) | payer MEDICARE, OTHER ==
[~2025-08-14] MED LIST changes: +HYDR-3713 PO
== END ==
LOC: M LABDRWCV 16:54
PROVIDERS: ATTEND Nurse Practitioner Family
DX: N42.9 Disorder of prostate, unspecified (principal); R35.1 Nocturia; Z12.5 Encounter for screening for malignant neoplasm of prostate
CPT/HCPCS: 36415; G0103

== ENCOUNTER 2025-08-18 11:56 | Day surgery (SDC) | payer MEDICARE, OTHER ==
[~2025-08-18] VITALS: Ht 170.2 cm; Wt 84.5 kg
[~2025-08-18 11:56] MED LIST changes: +LR 1,000 ML IV SCH
[2025-08-18] MEDS ORDERED: MIDAZOLAM INJ 2 MG/2 ML VIAL As Ordered ONE (14:00)
[2025-08-18] MEDS: PHENYLEPHRINE 2.5% OPHTH SOL 2ML OD SCH (14:05)
[2025-08-18] MEDS: FLURBIPROFEN 0.03% OPHTH SOLN 2.5 ML OD SCH (14:05)
[2025-08-18] MEDS: CYCLOPENTOLATE 1% OPHTH SOLN 2 ML BTL OD SCH (14:05)
[2025-08-18] MEDS: TETRACAINE 0.5% OPHTH SOLN 4ML OD SCH (14:05)
[2025-08-18] MEDS: LIDOCAINE 1% SDV 5 ML VIAL As Ordered ONE (14:14)
[2025-08-18] MEDS: CEFUROXIME 1 MG/0.1 ML INTRACAMERAL INJ As Ordered ONE (14:14)
[2025-08-18 14:36] VITALS: BP 165/70; TEMP 97.5; O2SAT 95
== END 2025-08-18 15:08 | disposition home or self-care (01) ==
LOC: M SDC 11:56
PROVIDERS: ATTEND Ophthalmology
DX: E11.36 Type 2 diabetes mellitus with diabetic cataract (principal); H25.11 Age-related nuclear cataract, right eye; E11.22 Type 2 diabetes mellitus with diabetic chronic kidney disease; I12.9 Hypertensive chronic kidney disease with stage 1 through stage 4 chronic kidney disease, or unspecified chronic kidney disease; N18.30 Chronic kidney disease, stage 3 unspecified; E78.00 Pure hypercholesterolemia, unspecified; Z79.899 Other long term (current) drug therapy; Z79.82 Long term (current) use of aspirin; Z79.4 Long term (current) use of insulin; Z90.49 Acquired absence of other specified parts of digestive tract
CPT/HCPCS: 66984; J0697; J2250; J3010; V2632

== ENCOUNTER → 2025-10-06 | Outpatient (REF) | payer MEDICARE, OTHER ==
[~2025-10-06] MED LIST changes: -LR 1,000 ML IV SCH
[2025-10-09 13:18] LABS: PSA % FREE 27.0 % (calc) (>25); PSA FREE 1.7 ng/mL; PSA TOTAL 6.4 ng/mL (< OR = 4.0)
== END ==
LOC: M SFHCCAPE 10:45
PROVIDERS: ATTEND Physician Assistant Medical
DX: N40.1 Benign prostatic hyperplasia with lower urinary tract symptoms (principal); R97.20 Elevated prostate specific antigen [PSA]